=== PATIENT | male | born 1990 | race Caucasian/White ===

== ENCOUNTER 2017-07-21 14:38 | Emergency (ER) | payer OTHER ==
[2017-07-21 14:55] VITALS: BP 111/78; PULSE 85; RESP 18; TEMP 98.5
--- NOTE | 2017-07-21 15:15 | ED ---
General Adult HPI - General Chief complaint: ENT Stated complaint: Sore Throat Time Seen by Provider: 07/21/17 15:03 Source: patient Mode of arrival: ambulatory Limitations: no limitations - History of Present Illness Initial comments: 26-year-old male patient presented to emergency department today for evaluation of sore throat and nasal congestion. Patient states the symptoms started yesterday. Patient states that he does have a cough with greenish sputum production. Reports facial pressure with clear nasal drainage. States that he has felt chilled. He denies any known fever, sweats, shortness of breath, chest pain, dizziness, weakness, ear pain, rash, abdominal pain, nausea, vomiting, or difficulties with urination or bowel movements. Patient admits to smoking cigarettes. - Related Data Previous Rx's Medication Instructions Recorded Ibuprofen [Motrin] 600 mg PO Q6HR PRN #20 tab 07/21/17 Allergies Allergy/AdvReac Type Severity Reaction Status Date / Time No Known Allergies Allergy Verified 07/21/17 14:55 Review of Systems ROS Statement: Those systems with pertinent positive or pertinent negative responses have been documented in the HPI. ROS Other: All systems not noted in ROS Statement are negative. Past Medical History Past Medical History: Asthma Additional Past Medical History / Comment(s): Bronchitis History of Any Multi-Drug Resistant Organisms: None Reported Past Surgical History: No Surgical Hx Reported Additional Past Surgical History / Comment(s): patient states he had unspecified surgery on the back of his head when he was younger, Past Psychological History: No Psychological Hx Reported Smoking Status: Current every day smoker Past Alcohol Use History: Occasional Past Drug Use History: None Reported General Exam Limitations: no limitations General appearance: alert, in no apparent distress Eye exam: Present: normal appearance, PERRL, EOMI. Absent: scleral icterus, conjunctival injection, periorbital swelling ENT exam: Present: normal exam, mucous membranes moist, TM's normal bilaterally. Absent: normal oropharynx (Oropharyngeal erythema) Neck exam: Present: normal inspection. Absent: tenderness, meningismus, lymphadenopathy Respiratory exam: Present: normal lung sounds bilaterally. Absent: respiratory distress, wheezes, rales, rhonchi, stridor Cardiovascular Exam: Present: regular rate, normal rhythm, normal heart sounds. Absent: systolic murmur, diastolic murmur, rubs, gallop, clicks GI/Abdominal exam: Present: soft, normal bowel sounds. Absent: distended, tenderness, guarding, rebound, rigid Extremities exam: Present: normal inspection, full ROM, normal capillary refill. Absent: tenderness, pedal edema, joint swelling, calf tenderness Back exam: Present: normal inspection Neurological exam: Present: alert, oriented X3, CN II-XII intact Psychiatric exam: Present: normal affect, normal mood Skin exam: Present: warm, dry, intact, normal color. Absent: rash Course Vital Signs 07/21/17 14:53 Temperature 98.5 F Pulse Rate 85 Respiratory 18 Rate Blood Pressure 111/78 O2 Sat by Pulse 98 Oximetry Medical Decision Making - Medical Decision Making 26-year-old male patient presented to emergency department today for evaluation of sore throat, nasal congestion, and cough. Symptoms started yesterday. Physical exam did reveal some oropharyngeal erythema however with symptoms of nasal congestion, cough also not having a fever strep throat is unlikely. Patient be discharged home with viral upper respiratory infection. Patient instructed to increase fluids, use Tylenol Motrin for pain control, and to use qzsw-[id number] nasal decongestants for symptom relief. Patient instructed to follow up with his primary care physician for recheck in 1-2 days. Instructed to return here immediately for any new, worsening, or concerning symptoms. Patient verbalizes understanding and agrees this plan. Disposition Clinical Impression: Upper respiratory infection Disposition: HOME SELF-CARE Instructions: Upper Respiratory Infection (ED), Cold Symptoms (ED) Additional Instructions: Increase fluids. Alternate Tylenol Motrin for pain and fever control. Take [id number]-[id number] nasal decongestants or cold medicine. Follow-up with primary care physician for recheck in 1-2 days. Return immediately for any new, worsening, or concerning symptoms. Prescriptions: Ibuprofen [Motrin] 600 mg PO Q6HR PRN #20 tab PRN Reason: Pain Referrals: None,Stated [Primary Care Provider] - 1-2 days Time of Disposition: 15:15
== END 2017-07-21 15:21 | disposition home or self-care (01) ==
LOC: EC 14:38
DX: J06.9 Acute upper respiratory infection, unspecified (principal); F17.210 Nicotine dependence, cigarettes, uncomplicated
CPT/HCPCS: 99282

== ENCOUNTER 2017-07-30 13:40 | Emergency (ER) | payer OTHER ==
[2017-07-30 13:44] VITALS: BP 124/79; RESP 18; TEMP 97.1
[2017-07-30] MEDS ORDERED: IPRATROPIUM-ALBUTEROL 3 ML NEB INHALATION STA (13:53)
--- NOTE | 2017-07-30 14:10 | ED ---
URI HPI - General Chief Complaint: Upper Respiratory Infection Stated Complaint: cough/rash Time Seen by Provider: 07/30/17 13:48 Source: patient, RN notes reviewed Mode of arrival: ambulatory Limitations: no limitations - History of Present Illness Initial Comments: 26-year-old male present emergency department for cough and congestion for last few days. Patient states his rash was chest. His cough gets worse with gross work because he works for [employer]. Patient is a daily smoker and has a history of asthma. Patient has effusion or chills. Patient states rash is itchy and is most likely from the fiberglass. He denies any new soaps or lotions or detergents. Patient states does get better after he washes all. Patient denies any djyj-emm-[id number] medication use. Denies any ear pain, sore throat, headache or dizziness. - Related Data Previous Rx's Medication Instructions Recorded Ibuprofen [Motrin] 600 mg PO Q6HR PRN #20 tab 07/21/17 Albuterol Sulfate [Proair Hfa] 1 - 2 puff INHALATION Q4HR PRN #1 07/30/17 inhaler methylPREDNISolone [Medrol Dose 4 mg PO DIRECTED #1 pack 07/30/17 Pack] Allergies Allergy/AdvReac Type Severity Reaction Status Date / Time No Known Allergies Allergy Verified 07/30/17 13:44 Review of Systems ROS Statement: Those systems with pertinent positive or pertinent negative responses have been documented in the HPI. ROS Other: All systems not noted in ROS Statement are negative. Past Medical History Past Medical History: Asthma Additional Past Medical History / Comment(s): Bronchitis History of Any Multi-Drug Resistant Organisms: None Reported, MRSA Date of last positivie culture/infection: 2011 Past Surgical History: No Surgical Hx Reported Additional Past Surgical History / Comment(s): , Past Psychological History: No Psychological Hx Reported Smoking Status: Current every day smoker Past Alcohol Use History: Occasional Past Drug Use History: None Reported General Exam Limitations: no limitations General appearance: alert, in no apparent distress Head exam: Present: atraumatic, normocephalic, normal inspection Eye exam: Present: normal appearance, PERRL, EOMI. Absent: scleral icterus, conjunctival injection, periorbital swelling ENT exam: Present: normal exam, normal oropharynx, mucous membranes moist, TM's normal bilaterally, normal external ear exam Neck exam: Present: normal inspection, full ROM. Absent: tenderness, meningismus, lymphadenopathy Respiratory exam: Present: wheezes. Absent: normal lung sounds bilaterally, respiratory distress, rales, rhonchi, stridor Cardiovascular Exam: Present: regular rate, normal rhythm, normal heart sounds. Absent: systolic murmur, diastolic murmur, rubs, gallop, clicks Skin exam: Present: warm, dry, intact, normal color. Absent: rash Course Vital Signs 07/30/17 07/30/17 13:41 14:10 Temperature 97.1 F L Pulse Rate 87 88 Respiratory 18 Rate Blood Pressure 124/79 O2 Sat by Pulse 100 Oximetry Medical Decision Making - Medical Decision Making 26-year-old male present emergency department for cough congestion and rash. Patient has acute asthmatic bronchitis. Patient also has smoking dependency which is counseled in detail greater than 3 minutes regarding smoking cessation. Patient x-ray is consistent with bronchitis or reactive airway disease. Patient was started on a Dosepak, pro-air inhaler. He is advised to stop smoking. Patient has contact dermatitis secondary to fiberglass contact and which is advised to rinse thoroughly and take Benadryl if needed. Disposition Clinical Impression: Asthmatic bronchitis, Contact dermatitis Disposition: HOME SELF-CARE Condition: Stable Instructions: Upper Respiratory Infection (ED) Additional Instructions: Please return to the Emergency Department if symptoms worsen or any other concerns. Prescriptions: Albuterol Sulfate [Proair Hfa] 1 - 2 puff INHALATION Q4HR PRN #1 inhaler PRN Reason: difficulty in breathing methylPREDNISolone [Medrol Dose Pack] 4 mg PO DIRECTED #1 pack Referrals: None,Stated [Primary Care Provider] - 1-2 days Time of Disposition: 14:22
--- NOTE | 2017-07-30 14:17 | XR ---
EXAMINATION TYPE: XR chest 2V DATE OF EXAM: 07/30/2017 COMPARISON: NONE HISTORY: Chest pain with coughing for 2 days. TECHNIQUE: Frontal and lateral views of the chest are obtained. FINDINGS: Perihilar peribronchial cuffing is felt present bilaterally. There is no focal air space op acity, pleural effusion, or pneumothorax seen. The cardiac silhouette size is within normal limits. The osseous structures are intact. IMPRESSION: No suspicious peripheral focal infiltrate. Central parahilar peribronchial cuffing raise s concern for reactive airway disease possibly from a viral bronchiolitis.
[2017-07-30 14:21] VITALS: PULSE 92
== END 2017-07-30 14:32 | disposition home or self-care (01) ==
LOC: EC 13:40
DX: J45.909 Unspecified asthma, uncomplicated (principal); L25.8 Unspecified contact dermatitis due to other agents; F17.200 Nicotine dependence, unspecified, uncomplicated; Z86.14 Personal history of Methicillin resistant Staphylococcus aureus infection; Z71.6 Tobacco abuse counseling
CPT/HCPCS: 71020; 94640; 99283

== ENCOUNTER 2017-08-23 22:46 | Emergency (ER) | payer OTHER ==
--- NOTE | 2017-08-24 00:02 | ED ---
Skin/Abscess/FB HPI - General Chief complaint: Skin/Abscess/Foreign Body Stated complaint: Rectal Pain Time Seen by Provider: 08/23/17 23:28 Source: patient, family Mode of arrival: ambulatory Limitations: no limitations - History of Present Illness Initial comments: This patient is 26-year-old man who presents to be evaluated for swelling and pain adjacent to his anus. Patient states that this developed this morning. It may have been after bowel movement. The patient has not had similar previously read he did not notice any bleeding. Patient does not have any abdominal pain. Onset/Timin -: days(s) Tetanus Up to Date: yes Consistency: constant Improves with: none Worsens with: palpation Context: none Associated symptoms: denies other symptoms - Related Data Previous Rx's Medication Instructions Recorded Hydrocortisone/Pramoxine 0 applic RECTAL BID #1 bottle 08/24/17 [Proctofoam-Hc 1%-1% Foam] Allergies Allergy/AdvReac Type Severity Reaction Status Date / Time No Known Allergies Allergy Verified 08/23/17 22:58 Review of Systems ROS Statement: Those systems with pertinent positive or pertinent negative responses have been documented in the HPI. ROS Other: All systems not noted in ROS Statement are negative. Constitutional: Denies: fever, chills Gastrointestinal: Reports: constipation. Denies: abdominal pain, vomiting, diarrhea, melena, hematochezia Genitourinary: Denies: dysuria, hematuria, testicular pain Musculoskeletal: Denies: back pain Skin: Reports: as per HPI Past Medical History Past Medical History: Asthma Additional Past Medical History / Comment(s): Bronchitis History of Any Multi-Drug Resistant Organisms: None Reported, MRSA Date of last positivie culture/infection: 2011 Past Surgical History: No Surgical Hx Reported Additional Past Surgical History / Comment(s): , Past Psychological History: No Psychological Hx Reported Smoking Status: Current every day smoker Past Alcohol Use History: Occasional Past Drug Use History: None Reported General Exam Limitations: no limitations General appearance: alert, in no apparent distress Respiratory exam: Present: normal lung sounds bilaterally. Absent: respiratory distress, wheezes, rales, rhonchi, stridor Cardiovascular Exam: Present: regular rate, normal rhythm, normal heart sounds. Absent: systolic murmur, diastolic murmur, rubs, gallop GI/Abdominal exam: Present: soft. Absent: distended, tenderness, guarding, rebound, mass Rectal exam: Present: hemorrhoids (Patient has an approximately 2 cm external hemorrhoid to the right of the anus. There does not appear to be any definite area of thrombosis. There is no active bleeding.) Extremities exam: Present: normal inspection, normal capillary refill. Absent: pedal edema, calf tenderness Back exam: Present: normal inspection. Absent: CVA tenderness (R), CVA tenderness (L) Skin exam: Present: warm, dry, intact, normal color. Absent: rash Course Vital Signs 08/23/17 22:55 Temperature 97 F L Pulse Rate 68 Respiratory 18 Rate Blood Pressure 118/67 O2 Sat by Pulse 100 Oximetry Disposition Clinical Impression: Hemorrhoid Disposition: HOME SELF-CARE Condition: Fair Instructions: Hemorrhoids (ED) Prescriptions: Hydrocortisone/Pramoxine [Proctofoam-Hc 1%-1% Foam] 0 applic RECTAL BID #1 bottle Referrals: None,Stated [Primary Care Provider] - 1-2 days
[2017-08-24 00:36] VITALS: BP 122/64; PULSE 78; RESP 16; TEMP 98
== END 2017-08-24 00:36 | disposition home or self-care (01) ==
LOC: EC 22:46
DX: K64.4 Residual hemorrhoidal skin tags (principal); F17.200 Nicotine dependence, unspecified, uncomplicated; Z86.14 Personal history of Methicillin resistant Staphylococcus aureus infection
CPT/HCPCS: 99283

== ENCOUNTER 2017-08-25 00:50 | Emergency (ER) | payer OTHER ==
[2017-08-25 00:59] VITALS: BP 119/72; PULSE 71; RESP 20; TEMP 97.9
[2017-08-25] MEDS ORDERED: HYDROCORTISONE 2.5% RECTAL CREAM 30 GM TUBE RECTAL STA (01:30)
--- NOTE | 2017-08-25 01:34 | ED ---
General Adult HPI - General Chief complaint: Recheck/Abnormal Lab/Rx Stated complaint: revisit Time Seen by Provider: 08/25/17 01:16 Source: patient, family Mode of arrival: ambulatory Limitations: no limitations - History of Present Illness Initial comments: 26-year-old male patient presents for evaluation of hemorrhoids. Patient was seen and evaluated here yesterday and given a prescription. Patient states that he feels that the area has gotten bigger since yesterday. He states that he was unable to get the prescription filled because his insurance wouldn't cover it. He states he did obtained Preparation H [id number] and has been using it without relief of symptoms. He states that he has a lot of pain and is unable to work with the symptoms. He is requesting a work note. Patient states last bowel movement was yesterday and it was normal. He denies any passage of blood. He denies any abdominal pain with this. Patient denies any recent rash, fever, chills, shortness breath, chest pain, nausea, vomiting, diarrhea, constipation, back pain, numbness, tingling, dizziness, weakness, hematuria, dysuria, urinary urgency, urinary frequency, headache, visual changes , or any other complaints. - Related Data Previous Rx's Medication Instructions Recorded Hydrocortisone/Pramoxine 0 applic RECTAL BID #1 bottle 08/24/17 [Proctofoam-Hc 1%-1% Foam] Allergies Allergy/AdvReac Type Severity Reaction Status Date / Time No Known Allergies Allergy Verified 08/25/17 00:59 Review of Systems ROS Statement: Those systems with pertinent positive or pertinent negative responses have been documented in the HPI. ROS Other: All systems not noted in ROS Statement are negative. Past Medical History Past Medical History: Asthma Additional Past Medical History / Comment(s): Bronchitis History of Any Multi-Drug Resistant Organisms: None Reported, MRSA Date of last positivie culture/infection: 2011 Past Surgical History: No Surgical Hx Reported Additional Past Surgical History / Comment(s): , Past Psychological History: No Psychological Hx Reported Smoking Status: Current every day smoker Past Alcohol Use History: Occasional Past Drug Use History: None Reported General Exam Limitations: no limitations General appearance: alert, in no apparent distress, other (This is a well- developed, well-nourished adult male patient in no acute distress. Temperature 97.9F, pulse 71, respirations 20, blood pressure 119/72, pulse ox 99% on room air.) Eye exam: Present: normal appearance, PERRL, EOMI. Absent: scleral icterus, conjunctival injection, periorbital swelling ENT exam: Present: normal exam, normal oropharynx, mucous membranes moist Respiratory exam: Present: normal lung sounds bilaterally. Absent: respiratory distress, wheezes, rales, rhonchi, stridor Cardiovascular Exam: Present: regular rate, normal rhythm, normal heart sounds. Absent: systolic murmur, diastolic murmur, rubs, gallop, clicks GI/Abdominal exam: Present: soft, normal bowel sounds. Absent: distended, tenderness, guarding, rebound, rigid Rectal exam: Present: hemorrhoids (Large hemorrhoid to the left side of the anus. Hemorrhage is pink in color with no evidence of thrombosis. No evidence of bleeding.). Absent: normal inspection Neurological exam: Present: alert, oriented X3, CN II-XII intact Psychiatric exam: Present: normal affect, normal mood Skin exam: Present: warm, dry, intact, normal color. Absent: rash Course Vital Signs 08/25/17 00:56 Temperature 97.9 F Pulse Rate 71 Respiratory 20 Rate Blood Pressure 119/72 O2 Sat by Pulse 99 Oximetry Medical Decision Making - Medical Decision Making 26-year-old male patient presented for evaluation of hemorrhoids are increasing in size. Physical examination did reveal a large external hemorrhoid to the left of the anus. Patient is denying any abdominal pain or passage of blood. He was unable to hop picker his prescription because his insurance wouldn't cover it. He states he was using Preparation H. I did encourage him to call the general surgeon in the morning for further evaluation. I did educate him regarding use of sitz baths and other [id number] products for relief of symptoms. I instructed him to take ibuprofen. I instructed him to get an over- the-counter stool softener to make it easier for him to have bowel movements. Patient again did request a work note states he is unable to work with the hemorrhoids. I did give him a work note for a few days off. I encouraged him to return here immediately for any new, worsening, or concerning symptoms. He verbalized understanding and agreed with this plan. Disposition Clinical Impression: Hemorrhoid Disposition: HOME SELF-CARE Condition: Good Instructions: Hemorrhoids (ED) Additional Instructions: Do sits baths a few times per day. Fill the tub up with 3-4 inches of water, sitting there for 20 minutes at a time. Use cream twice daily. Take over-the- counter stool softeners. Follow up with her primary care physician for recheck. Follow-up with a general surgeon as she your instructed to yesterday. Return here immediately for any new, worsening, or concerning symptoms. Referrals: None,Stated [Primary Care Provider] - 1-2 days Hans Abraham MD [STAFF PHYSICIAN] - 1-2 days Time of Disposition: 01:34
== END 2017-08-25 01:53 | disposition home or self-care (01) ==
LOC: EC 00:50
DX: K64.4 Residual hemorrhoidal skin tags (principal); F17.200 Nicotine dependence, unspecified, uncomplicated
CPT/HCPCS: 99282

== ENCOUNTER 2018-01-23 16:00 | Emergency (ER) | payer OTHER ==
[2018-01-23 16:07] VITALS: BP 118/71; PULSE 66; RESP 16; TEMP 97.7
--- NOTE | 2018-01-23 16:11 | ED ---
ENT HPI - General Chief complaint: ENT Stated complaint: Ear pain Time Seen by Provider: 01/23/18 16:03 Source: patient, RN notes reviewed Mode of arrival: ambulatory Limitations: no limitations - History of Present Illness Initial comments: 27-year-old male presents emergency Department with chief complaint of right ear plugged. Patient states started last night. Patient states that this problem in the past in which she had a buildup of wax. Patient denies fever, chills, headache, dizziness. Denies any drainage. Patient states that it feels exactly same as it did in the past. - Related Data Previous Rx's Medication Instructions Recorded Hydrocortisone/Pramoxine 0 applic RECTAL BID #1 bottle 08/24/17 [Proctofoam-Hc 1%-1% Foam] Allergies Allergy/AdvReac Type Severity Reaction Status Date / Time No Known Allergies Allergy Verified 08/25/17 00:59 Review of Systems ROS Statement: Those systems with pertinent positive or pertinent negative responses have been documented in the HPI. ROS Other: All systems not noted in ROS Statement are negative. Past Medical History Past Medical History: Asthma Additional Past Medical History / Comment(s): Bronchitis History of Any Multi-Drug Resistant Organisms: MRSA Date of last positivie culture/infection: 2011 Past Surgical History: No Surgical Hx Reported Additional Past Surgical History / Comment(s): , Past Psychological History: No Psychological Hx Reported Smoking Status: Current every day smoker Past Alcohol Use History: Rare Past Drug Use History: None Reported General Exam Limitations: no limitations General appearance: alert, in no apparent distress Head exam: Present: atraumatic, normocephalic, normal inspection Eye exam: Present: normal appearance, PERRL, EOMI. Absent: scleral icterus, conjunctival injection, periorbital swelling ENT exam: Present: normal oropharynx, mucous membranes moist, TM's normal bilaterally. Absent: normal external ear exam (Cerumen impaction on the right) Neck exam: Present: normal inspection, full ROM. Absent: tenderness, meningismus, lymphadenopathy Respiratory exam: Present: normal lung sounds bilaterally. Absent: respiratory distress, wheezes, rales, rhonchi, stridor Cardiovascular Exam: Present: regular rate, normal rhythm, normal heart sounds. Absent: systolic murmur, diastolic murmur, rubs, gallop, clicks Course Vital Signs 01/23/18 16:04 Temperature 97.7 F Pulse Rate 66 Respiratory 16 Rate Blood Pressure 118/71 O2 Sat by Pulse 99 Oximetry Procedures - Ear Wax Removal Right Ear Ear Canal Irrigated by: RN Ear Canal Irrigated With: warm saline with H2O2 using syringe/angiocath Results: Re-examined: cerumen removed completely TM Visible: TM(s) intact, normal appearance Ear Canal: atraumatic Patient Tolerated Procedure: well, no complications Complications: no problems Medical Decision Making - Medical Decision Making 27-year-old male presented to emergency department for cerumen impaction. Patient did have his ear canal irrigated patient tolerated well there were no complications. Patient was discharged. There is no signs of infection. Disposition Clinical Impression: Cerumen impaction Disposition: HOME SELF-CARE Condition: Stable Instructions: Cerumen Impaction (ED) Additional Instructions: Please return to the Emergency Department if symptoms worsen or any other concerns. Referrals: None,Stated [Primary Care Provider] - 1-2 days Time of Disposition: 16:11
== END 2018-01-23 16:58 | disposition home or self-care (01) ==
LOC: EC 16:00
DX: H61.21 Impacted cerumen, right ear (principal); F17.200 Nicotine dependence, unspecified, uncomplicated; Z86.14 Personal history of Methicillin resistant Staphylococcus aureus infection
CPT/HCPCS: 69209; 99282

== ENCOUNTER 2018-05-31 03:53 | Emergency (ER) | payer OTHER ==
[2018-05-31] MEDS ORDERED: HYDROcodone/APAP 5-325MG 1 EACH TAB PO STA (05:19)
[2018-05-31] MEDS ORDERED: CEPHALEXIN 500 MG CAP PO STA (05:19)
[2018-05-31] MEDS ORDERED: SULFAMETHOX-TMP 800-160MG 1 EACH TAB PO STA (05:19)
--- NOTE | 2018-05-31 05:50 | ED ---
General Adult HPI - General Chief complaint: Skin/Abscess/Foreign Body Stated complaint: Boil on tailbone Time Seen by Provider: 05/31/18 05:05 Source: patient, RN notes reviewed, old records reviewed Mode of arrival: ambulatory Limitations: no limitations - History of Present Illness Initial comments: This is a 27-year-old male the ER for evaluation of buttocks pain. Patient states he has significant boil or a bump to top of buttocks, he has some purulent drainage yesterday, frontal patient comes ER today for evaluation regarding increased pain and drainage. Patient is having severe pain to his buttocks, no fever. Denies any other complaints - Related Data Previous Rx's Medication Instructions Recorded Hydrocortisone/Pramoxine 0 applic RECTAL BID #1 bottle 08/24/17 [Proctofoam-Hc 1%-1% Foam] Cephalexin [Keflex] 500 mg PO Q6HR #40 cap 05/31/18 Sulfamethox-Tmp 800-160Mg [Bactrim 2 tab PO BID #40 tab 05/31/18 DS 800-160 mg] Allergies Allergy/AdvReac Type Severity Reaction Status Date / Time No Known Allergies Allergy Verified 05/31/18 04:07 Review of Systems ROS Statement: Those systems with pertinent positive or pertinent negative responses have been documented in the HPI. ROS Other: All systems not noted in ROS Statement are negative. Past Medical History Past Medical History: Asthma Additional Past Medical History / Comment(s): Bronchitis History of Any Multi-Drug Resistant Organisms: MRSA Date of last positivie culture/infection: 2011 MDRO Source:: right thigh Past Surgical History: No Surgical Hx Reported Additional Past Surgical History / Comment(s): , Past Psychological History: No Psychological Hx Reported Smoking Status: Current every day smoker Past Alcohol Use History: Rare Past Drug Use History: None Reported General Exam Limitations: no limitations General appearance: alert, in no apparent distress Head exam: Present: atraumatic, normocephalic, normal inspection Eye exam: Present: normal appearance, PERRL, EOMI. Absent: scleral icterus, conjunctival injection, periorbital swelling ENT exam: Present: normal exam, mucous membranes moist Neck exam: Present: normal inspection. Absent: tenderness, meningismus, lymphadenopathy Respiratory exam: Present: normal lung sounds bilaterally. Absent: respiratory distress, wheezes, rales, rhonchi, stridor Cardiovascular Exam: Present: regular rate, normal rhythm, normal heart sounds. Absent: systolic murmur, diastolic murmur, rubs, gallop, clicks GI/Abdominal exam: Present: soft, normal bowel sounds. Absent: distended, tenderness, guarding, rebound, rigid Rectal exam: Present: other (Patient does have erythematous rash and abscess with purulent drainage) Extremities exam: Present: normal inspection, full ROM, normal capillary refill. Absent: tenderness, pedal edema, joint swelling, calf tenderness Back exam: Present: normal inspection Neurological exam: Present: alert, oriented X3, CN II-XII intact Psychiatric exam: Present: normal affect, normal mood Skin exam: Present: warm, dry, intact, normal color. Absent: rash Course Vital Signs 05/31/18 04:04 Temperature 99.1 F Pulse Rate 87 Respiratory 17 Rate Blood Pressure 115/76 O2 Sat by Pulse 100 Oximetry - Reevaluation(s) Reevaluation #1: 05/31/18 05:49 Patient's pain is controlled Procedures - Incision & Drainage Consent Obtained: verbal consent Time Out Performed?: Yes Site: buttock Anesthetic Used: lidocaine 1%, with epi I&D Cleaning Method: Chloroprep Sterile Field Used?: Yes Scalpel Used: #11 Needle Aspiration Performed?: No Irrigation Performed?: No I&D Drainage Obtained: Pus Culture Obtained?: No Medical Decision Making - Medical Decision Making 27 male the ER for evaluation of abscess. Patient positive abscess buttocks, abscess is incised and drained, patient was placed on antibiotics encouraged strongly hygiene and patient can be discharged home Disposition Clinical Impression: Abscess of buttock Disposition: HOME SELF-CARE Condition: Good Instructions: Abscess (ED) Prescriptions: Cephalexin [Keflex] 500 mg PO Q6HR #40 cap Sulfamethox-Tmp 800-160Mg [Bactrim DS 800-160 mg] 2 tab PO BID #40 tab Is patient prescribed a controlled substance at d/c from ED?: No Referrals: None,Stated [Primary Care Provider] - 1-2 days
[2018-05-31 06:37] VITALS: BP 136/67; PULSE 79; RESP 16; TEMP 97.9
== END 2018-05-31 06:35 | disposition home or self-care (01) ==
LOC: EC 03:53
DX: L02.31 Cutaneous abscess of buttock (principal); F17.200 Nicotine dependence, unspecified, uncomplicated; Z86.14 Personal history of Methicillin resistant Staphylococcus aureus infection
CPT/HCPCS: 10060; 99283

== ENCOUNTER 2018-07-06 17:43 | Emergency (ER) | payer OTHER ==
[2018-07-06 18:15] VITALS: BP 124/73; PULSE 64; RESP 18; TEMP 97.8
--- NOTE | 2018-07-06 19:13 | ED ---
ENT HPI - General Chief complaint: ENT Stated complaint: Eye swollen Time Seen by Provider: 07/06/18 18:29 Source: patient Mode of arrival: ambulatory Limitations: no limitations - History of Present Illness Initial comments: 27-year-old male with no past medical history presents today for chief complaint of right upper eyelid swelling and erythema. Patient states that 2 days ago he noticed a bump on his upper eyelid, for the past 2 days has been slowly increasing in size. It is tender to touch. He denies any conjunctival injection, drainage of the eye, visual changes, double vision, pain with extraocular eye movements, headache, nausea, vomiting or any other symptoms. 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 Patient denies any recent fever, chills, shortness of breath, chest pain, back pain, abdominal pain, nausea or vomiting, numbness or tingling, dysuria or hematuria, constipation or diarrhea, headaches or visual changes, or any other complaints. Upon arrival vital signs stable, afebrile. - Related Data Previous Rx's Medication Instructions Recorded Hydrocortisone/Pramoxine 0 applic RECTAL BID #1 bottle 08/24/17 [Proctofoam-Hc 1%-1% Foam] Cephalexin [Keflex] 500 mg PO Q6HR #40 cap 05/31/18 Sulfamethox-Tmp 800-160Mg [Bactrim 2 tab PO BID #40 tab 05/31/18 DS 800-160 mg] Allergies Allergy/AdvReac Type Severity Reaction Status Date / Time No Known Allergies Allergy Verified 05/31/18 04:07 Review of Systems ROS Statement: Those systems with pertinent positive or pertinent negative responses have been documented in the HPI. ROS Other: All systems not noted in ROS Statement are negative. Constitutional: Denies: fever, chills, night sweats Eyes: Reports: as per HPI (eye lid swelling, erythema and tenderness to palpation). Denies: eye pain, eye discharge, vision change ENT: Denies: ear pain, throat pain Respiratory: Denies: cough, dyspnea, wheezes, hemoptysis Cardiovascular: Denies: chest pain, palpitations Endocrine: Denies: fatigue Gastrointestinal: Denies: abdominal pain, nausea, vomiting Genitourinary: Denies: urgency, dysuria, frequency Musculoskeletal: Denies: back pain Skin: Denies: rash, lesions Neurological: Denies: headache, weakness Past Medical History Past Medical History: Asthma Additional Past Medical History / Comment(s): Bronchitis History of Any Multi-Drug Resistant Organisms: MRSA Date of last positivie culture/infection: 2011 MDRO Source:: right thigh Past Surgical History: No Surgical Hx Reported Additional Past Surgical History / Comment(s): , Past Psychological History: No Psychological Hx Reported Smoking Status: Current every day smoker Past Alcohol Use History: Occasional Past Drug Use History: None Reported General Exam - General Exam Comments Initial Comments: General: The patient is awake and alert, in no distress, and does not appear acutely ill. Eye: Small raised erythematous of the upper inner eyelid. No active drainage. No surrounding soft tissue erythema of the right eye. Mild left upper eyelid swelling that is tender to palpation. +3 mm pupils are equal, round and reactive to light, extra-ocular movements are intact, no pain with extraocular eye movement. No nystagmus. There is normal conjunctiva bilaterally. No signs of icterus. VA 20/30 OD, OS, OU. Ears, nose, mouth and throat: There are moist mucous membranes and no oral lesions. Neck: The neck is supple, there is no tenderness or JVD. Cardiovascular: There is a regular rate and rhythm. No murmur, rub or gallop is appreciated. Respiratory: Lungs are clear to auscultation, respirations are non-labored, breath sounds are equal. No wheezes, stridor, rales, or rhonchi. Musculoskeletal: Normal ROM. Sensation intact. Pulses equal bilaterally 2+. Neurological: A&O x 3. CN II-XII intact, There are no obvious motor or sensory deficits. Coordination appears grossly intact. Speech is normal. Skin: Skin is warm and dry and no rashes or lesions are noted. Psychiatric: Cooperative, appropriate mood & affect, normal judgment. Limitations: no limitations Course Vital Signs 07/06/18 18:12 Temperature 97.8 F Pulse Rate 64 Respiratory 18 Rate Blood Pressure 124/73 O2 Sat by Pulse 100 Oximetry Medical Decision Making - Medical Decision Making Physical examination reveals hordeolum of the upper and her left eyelid. No evidence of surrounding cellulitis. Patient will be started on topical antibiotic, and was instructed to use warm compresses to the left upper lid. Pt was instructed to return to the ER if symptoms worsen or change. pt agreed with plan d/c in stable condition. Case discussed with Dr. Keyes prior to d/c. Disposition Clinical Impression: Hordeolum internum of right upper eyelid Narrative: Upper eyelid internal hordeolum. Pt was instructed to use warm compresses and to return if symptoms change or worsen. Pt instructed to f/u with opthamology in 1-2 days. Pt agreed with plan d/c in stable condition. Disposition: HOME SELF-CARE Instructions: Russell (ED) Additional Instructions: Please use warm lid compresses as discussed. Please follow-up with ophthalmology in 1-2 days. Please return to emergency room if the symptoms increase or worsen or for any other concerns. Is patient prescribed a controlled substance at d/c from ED?: No Referrals: None,Stated [Primary Care Provider] - 1-2 days Óscar Simental MD [STAFF PHYSICIAN] - 1-2 days Time of Disposition: 19:13
== END 2018-07-06 19:22 | disposition home or self-care (01) ==
LOC: EC 17:43
DX: H00.021 Hordeolum internum right upper eyelid (principal); F17.200 Nicotine dependence, unspecified, uncomplicated; Z86.14 Personal history of Methicillin resistant Staphylococcus aureus infection
CPT/HCPCS: 99283

== ENCOUNTER 2020-04-22 09:18 | Emergency (ER) | payer OTHER ==
[2020-04-22 09:22] VITALS: BP 143/82; PULSE 72; RESP 18; TEMP 98
[2020-04-22] MEDS ORDERED: HYDROcodone/APAP 5-325MG 1 EACH TAB PO STA (09:41)
[2020-04-22] MEDS ORDERED: CLINDAMYCIN 150 MG CAP PO STA (09:41)
--- NOTE | 2020-04-22 09:52 | ED ---
ENT HPI - General Chief complaint: Dental/Oral Stated complaint: Toothache Time Seen by Provider: 04/22/20 09:25 Source: patient, RN notes reviewed Mode of arrival: ambulatory Limitations: no limitations - History of Present Illness Initial comments: This is a 29-year-old male past medical history states she's had a toothache for approximately 1 week. He's tried topical medication such as Orajel [id number] Aleve he was getting some relief and now is getting worse and refractory to this method of pain control. He denies any fevers chills or s weats he does state he has a broken tooth in the back left upper molars. He does admit he does need to see a dentist. They have been closed due to the current pandemic. He has no other complaints this time no other modifying factors MD complaint: tooth pain - Related Data Previous Rx's Medication Instructions Recorded Hydrocortisone/Pramoxine 0 applic RECTAL BID #1 bottle 08/24/17 [Proctofoam-Hc 1%-1% Foam] Cephalexin [Keflex] 500 mg PO Q6HR #40 cap 05/31/18 Sulfamethox-Tmp 800-160Mg [Bactrim 2 tab PO BID #40 tab 05/31/18 DS 800-160 mg] Clindamycin [Cleocin] 150 mg PO Q6H #40 cap 04/22/20 Hydrocodone/Acetaminophen [[place] 1 each PO Q6HR PRN #20 tab 04/22/20 5-325] Ibuprofen 800 mg PO Q6HR PRN #20 tablet 04/22/20 Allergies Allergy/AdvReac Type Severity Reaction Status Date / Time No Known Allergies Allergy Verified 04/22/20 09:22 Review of Systems ROS Statement: Those systems with pertinent positive or pertinent negative responses have been documented in the HPI. ROS Other: All systems not noted in ROS Statement are negative. Past Medical History Past Medical History: Asthma Additional Past Medical History / Comment(s): Bronchitis History of Any Multi-Drug Resistant Organisms: MRSA Date of last positivie culture/infection: 2011 MDRO Source:: right thigh Past Surgical History: No Surgical Hx Reported Additional Past Surgical History / Comment(s): , Past Psychological History: No Psychological Hx Reported Smoking Status: Current every day smoker Past Alcohol Use History: Occasional Past Drug Use History: None Reported General Exam - General Exam Comments Initial Comments: Is a well-developed well-nourished awake alert oriented 3 male Limitations: no limitations General appearance: alert, in no apparent distress Eye exam: Present: normal appearance, PERRL, EOMI. Absent: scleral icterus, conjunctival injection, periorbital swelling ENT exam: Present: mucous membranes moist, other (Patient does demonstrate poor dentition with multiple areas of cavity in various teeth. Tooth #15 appears to be the worse with rotation of the gumline localized erythema to the gumline no drainage or discharge no evidence of abscess at this time. Tenderness to palpation.) Neck exam: Present: normal inspection. Absent: tenderness, meningismus, lymphadenopathy Neurological exam: Present: alert, oriented X3, CN II-XII intact Psychiatric exam: Present: normal affect, normal mood Skin exam: Present: warm, dry, intact, normal color. Absent: rash Course Vital Signs 04/22/20 09:21 Temperature 98.0 F Pulse Rate 72 Respiratory 18 Rate Blood Pressure 143/82 O2 Sat by Pulse 98 Oximetry Medical Decision Making - Medical Decision Making No further workup is indicated at this time patient does have severe dental caries he will be placed on antibiotics as well as pain medication is encouraged to try to find a dentist that is open. Otherwise return as needed Disposition Clinical Impression: Pain due to dental caries, Gingivitis Disposition: HOME SELF-CARE Condition: Good Instructions (If sedation given, give patient instructions): Toothache (ED), Gingivitis (ED) Prescriptions: Clindamycin [Cleocin] 150 mg PO Q6H #40 cap Ibuprofen 800 mg PO Q6HR PRN #20 tablet PRN Reason: Pain Hydrocodone/Acetaminophen [[place] 5-325] 1 each PO Q6HR PRN #20 tab PRN Reason: Pain Is patient prescribed a controlled substance at d/c from ED?: No Referrals: None,Stated [Primary Care Provider] - 1-2 days
--- NOTE | 2020-04-22 09:53 | ED ---
Disposition Clinical Impression: Pain due to dental caries, Gingivitis Disposition: HOME SELF-CARE Condition: Good Instructions (If sedation given, give patient instructions): Gingivitis (ED), Toothache (ED) Prescriptions: Clindamycin [Cleocin] 150 mg PO Q6H #40 cap Ibuprofen 800 mg PO Q6HR PRN #20 tablet PRN Reason: Pain Hydrocodone/Acetaminophen [[place] 5-325] 1 each PO Q6HR PRN #20 tab PRN Reason: Pain Is patient prescribed a controlled substance at d/c from ED?: Yes When asked, does pt state using other controlled substances?: No If prescribed controlled substance>3 days was MAPS reviewed?: Prescribed <3 Days If opioid is for acute pain is fill amount 7 days or less?: Yes If Rx opioid, was Start Talking consent form obtained?: Yes Referrals: None,Stated [Primary Care Provider] - 1-2 days
== END 2020-04-22 09:54 | disposition home or self-care (01) ==
LOC: EC 09:18
DX: K05.10 Chronic gingivitis, plaque induced (principal); K02.9 Dental caries, unspecified; F17.200 Nicotine dependence, unspecified, uncomplicated
CPT/HCPCS: 99282

== ENCOUNTER 2021-06-24 11:18 | Emergency (ER) | payer OTHER ==
[2021-06-24 11:38] VITALS: BP 116/72; PULSE 68; RESP 16; TEMP 98
[2021-06-24] MEDS ORDERED: ACET/COD 300 MG/30 MG STARTER PACK 6 TAB BTL PO STA (12:06)
--- NOTE | 2021-06-24 12:09 | ED ---
ENT HPI - General Chief complaint: Dental/Oral Stated complaint: dental pain Time Seen by Provider: 06/24/21 11:39 Source: patient Mode of arrival: ambulatory Limitations: no limitations - History of Present Illness Initial comments: Is a 30-year-old male presenting to emergency Department with complaints of right upper sided dental pain for the past week. He states he knows he has a broken tooth back there but it started flaring up on him last week. Has been trying Tylenol Motrin without improvement in his pain. He denies any fever or chills, no nausea or vomiting, no facial swelling. He has not followed up with his dentist yet. He has no further complaints. - Related Data Previous Rx's Medication Instructions Recorded Hydrocortisone/Pramoxine 0 applic RECTAL BID #1 bottle 08/24/17 [Proctofoam-Hc 1%-1% Foam] Cephalexin [Keflex] 500 mg PO Q6HR #40 cap 05/31/18 Sulfamethox-Tmp 800-160Mg [Bactrim 2 tab PO BID #40 tab 05/31/18 DS 800-160 mg] Clindamycin [Cleocin] 150 mg PO Q6H #40 cap 04/22/20 Hydrocodone/Acetaminophen [[place] 1 each PO Q6HR PRN #20 tab 04/22/20 5-325] Ibuprofen 800 mg PO Q6HR PRN #20 tablet 04/22/20 Penicillin V Potassium [Pen Vee K] 500 mg PO QID 7 Days #28 tablet 06/24/21 Allergies Allergy/AdvReac Type Severity Reaction Status Date / Time No Known Allergies Allergy Verified 06/24/21 11:36 Review of Systems ROS Statement: Those systems with pertinent positive or pertinent negative responses have been documented in the HPI. ROS Other: All systems not noted in ROS Statement are negative. Past Medical History Past Medical History: Asthma Additional Past Medical History / Comment(s): Bronchitis History of Any Multi-Drug Resistant Organisms: MRSA Date of last positivie culture/infection: 2011 MDRO Source:: right thigh Past Surgical History: No Surgical Hx Reported Additional Past Surgical History / Comment(s): , Past Psychological History: No Psychological Hx Reported Smoking Status: Current every day smoker Past Alcohol Use History: Occasional Past Drug Use History: None Reported General Exam - General Exam Comments Initial Comments: GENERAL: Patient is well-developed and well-nourished. Patient is nontoxic and in no acute distress. HEAD: Atraumatic, normocephalic. EYES: Pupils equal round and reactive to light, extraocular movements intact, sclera anicteric, conjunctiva are normal. Eyelids were unremarkable. ENT: TMs normal, nares patent, oropharynx clear without exudates. Moist mucous membranes. Patient has numerous dental caries and fractures of teeth, he has pain of tooth #2, no facial swelling. NECK: Normal range of motion, supple without lymphadenopathy or JVD. LUNGS: Unlabored respirations. Breath sounds clear to auscultation bilaterally and equ al. No wheezes rales or rhonchi. HEART: Regular rate and rhythm without murmurs, rubs or gallops. MUSCULOSKELETAL: Normal extremities with adequate strength and normal range of motion, no pitting or edema. No clubbing or cyanosis. SKIN: Warm, Dry, normal turgor, no rashes or lesions noted. Limitations: no limitations Course Vital Signs 06/24/21 11:36 Temperature 98 F Pulse Rate 68 Respiratory 16 Rate Blood Pressure 116/72 O2 Sat by Pulse 100 Oximetry Medical Decision Making - Medical Decision Making She has a 30-year-old male here for right-sided dental pain times one week. He has no fever, no facial swelling. He has many dental caries and fractured teeth on exam. He has not called his dentist. Patient will be given penicillin for possible dental infection, Tylenol 3 starter pack for pain. I recommended alternating between Tylenol and Motrin for symptom relief. He needs to call his dentist for follow-up. He is stable for discharge. He is agreeable to this plan of care. Disposition Clinical Impression: Dental caries, Fracture of tooth, Toothache Disposition: HOME SELF-CARE Condition: Stable Instructions (If sedation given, give patient instructions): Toothache (ED) Additional Instructions: Please return to the Emergency Department if symptoms worsen or any other concerns. Take antibiotics as prescribed. Alternate between Tylenol and Motrin for pain control, may take Tylenol threes for more severe pain. Follow-up with your dentist. Please follow up with the [facility] dental clinic. [facility] [place] [address]. Phone number for new patients or [phone] for existing patients. Prescriptions: Penicillin V Potassium [Pen Vee K] 500 mg PO QID 7 Days #28 tablet Is patient prescribed a controlled substance at d/c from ED?: No Referrals: None,Stated [Primary Care Provider] - 1-2 days Time of Disposition: 12:09
== END 2021-06-24 12:29 | disposition home or self-care (01) ==
LOC: EC 11:18
DX: S02.5XXA Fracture of tooth (traumatic), initial encounter for closed fracture (principal); K02.9 Dental caries, unspecified; J45.909 Unspecified asthma, uncomplicated; F17.200 Nicotine dependence, unspecified, uncomplicated; X58.XXXA Exposure to other specified factors, initial encounter
CPT/HCPCS: 99282

== ENCOUNTER 2021-07-01 05:35 | Emergency (ER) | payer OTHER ==
[2021-07-01 06:06] VITALS: BP 110/73; PULSE 67; RESP 18; TEMP 97.9
[2021-07-01] MEDS ORDERED: traMADol 50 MG STARTER PACK 3 TAB BTL PO STA (06:34)
[2021-07-01] MEDS ORDERED: KETOROLAC 15 MG/ML 1 ML VIAL IM STA (06:34)
--- NOTE | 2021-07-01 06:39 | ED ---
ENT HPI - General Chief complaint: Dental/Oral Stated complaint: Dental pain/Revisit Time Seen by Provider: 07/01/21 06:17 Source: patient Mode of arrival: ambulatory - History of Present Illness Initial comments: Patient is a 30-year-old male presenting to emergency Department with complaints of continued right-sided dental pain for the past 2-3 weeks. Patient was seen in the ER last week, given a prescription for penicillin and Tylenol threes, he states that the penicillin is making his stomach upset so he stopped taking it. He states the pain medicine is not working. He states he has not had time to go see his dentist yet. He denies any fevers or chills, no nausea or vomiting. He has no further complaints. - Related Data Previous Rx's Medication Instructions Recorded Hydrocortisone/Pramoxine 0 applic RECTAL BID #1 bottle 08/24/17 [Proctofoam-Hc 1%-1% Foam] Cephalexin [Keflex] 500 mg PO Q6HR #40 cap 05/31/18 Sulfamethox-Tmp 800-160Mg [Bactrim 2 tab PO BID #40 tab 05/31/18 DS 800-160 mg] Clindamycin [Cleocin] 150 mg PO Q6H #40 cap 04/22/20 Hydrocodone/Acetaminophen [[place] 1 each PO Q6HR PRN #20 tab 04/22/20 5-325] Ibuprofen 800 mg PO Q6HR PRN #20 tablet 04/22/20 Penicillin V Potassium [Pen Vee K] 500 mg PO QID 7 Days #28 tablet 06/24/21 Allergies Allergy/AdvReac Type Severity Reaction Status Date / Time No Known Allergies Allergy Verified 07/01/21 06:06 Review of Systems ROS Statement: Those systems with pertinent positive or pertinent negative responses have been documented in the HPI. ROS Other: All systems not noted in ROS Statement are negative. Past Medical History Past Medical History: Asthma Additional Past Medical History / Comment(s): Bronchitis History of Any Multi-Drug Resistant Organisms: MRSA Date of last positivie culture/infection: 2011 MDRO Source:: right thigh Past Surgical History: No Surgical Hx Reported Additional Past Surgical History / Comment(s): , Past Psychological History: No Psychological Hx Reported Smoking Status: Current every day smoker Past Alcohol Use History: Occasional Past Drug Use History: None Reported General Exam - General Exam Comments Initial Comments: GENERAL: Patient is well-developed and well-nourished. Patient is nontoxic and in no acute distress. HEAD: Atraumatic, normocephalic. EYES: Pupils equal round and reactive to light, extraocular movements intact, sclera anicteric, conjunctiva are normal. Eyelids were unremarkable. ENT: TMs normal, nares patent, oropharynx clear without exudates. Moist mucous membranes. Patient has many decayed teeth, many dental caries, fractured teeth. He has no visible dental abscess seen, no facial swelling. Pain is along the right upper side, from the front elevator to the back. NECK: Normal range of motion, supple without lymphadenopathy or JVD. LUNGS: Unlabored respirations. Breath sounds clear to auscultation bilaterally and equal. No wheezes rales or rhonchi. HEART: Regular rate and rhythm without murmurs, rubs or gallops. MUSCULOSKELETAL: Normal extremities with adequate strength and normal range of motion, no pitting or edema. No clubbing or cyanosis. NEUROLOGICAL: Patient is alert and oriented x 3. SKIN: Warm, Dry, normal turgor, no rashes or lesions noted. Course Vital Signs 07/01/21 06:03 Temperature 97.9 F Pulse Rate 67 Respiratory 18 Rate Blood Pressure 110/73 O2 Sat by Pulse 97 Oximetry Medical Decision Making - Medical Decision Making Patient is a 30-year-old male here with right-sided dental pain for the past 2 weeks. He was seen here last week, he has a prescription for penicillin and was also given Tylenol threes. He has not been taking ibuprofen with this. He has not followed up with his dentist and states is too busy. Denies any fevers, he has no facial swelling, no visible dental abscess seen today. He was given Toradol for pain and tramadol for home. He can alternate with tylenol. I urged him that he needs to follow up with dentist as is nothing further for us to do here. He is in agreement with this plan of care and is stable for discharge. Disposition Clinical Impression: Toothache, Dental caries, Fracture of tooth Disposition: HOME SELF-CARE Condition: Stable Instructions (If sedation given, give patient instructions): Toothache (ED) Additional Instructions: Please return to the Emergency Department if symptoms worsen or any other concerns. Please continue with prescribed antibiotics. Alternate between Tylenol and Motrin for discomfort. Follow-up with your dentist for further management. Please follow up with the [facility]. [facility] [address]. Phone number for new patients or [phone] for existing patients. Is patient prescribed a controlled substance at d/c from ED?: No Referrals: None,Stated [Primary Care Provider] - 1-2 days Time of Disposition: 06:39
== END 2021-07-01 06:57 | disposition home or self-care (01) ==
LOC: EC 05:35
DX: S02.5XXA Fracture of tooth (traumatic), initial encounter for closed fracture (principal); K02.9 Dental caries, unspecified; J45.909 Unspecified asthma, uncomplicated; F17.200 Nicotine dependence, unspecified, uncomplicated; X58.XXXA Exposure to other specified factors, initial encounter
CPT/HCPCS: 99282; 96372; J1885

== ENCOUNTER 2022-06-22 08:09 | Emergency (ER) | payer OTHER ==
[2022-06-22 08:13] VITALS: BP 137/83; PULSE 65; RESP 18; TEMP 97.6
[2022-06-22] MEDS ORDERED: AMOXIC-POT CLAV 875-125MG 1 EACH TAB PO STA (08:18)
[2022-06-22] MEDS ORDERED: IBUPROFEN 600 MG TAB PO STA (08:18)
--- NOTE | 2022-06-22 08:24 | ED ---
General Adult HPI - General Chief complaint: Dental/Oral Stated complaint: Dental Pain Time Seen by Provider: 06/22/22 08:11 Source: patient, RN notes reviewed, old records reviewed Mode of arrival: ambulatory Limitations: no limitations - History of Present Illness Initial comments: 31-year-old male with poor dentition present increased pain in the left lower molars. Patient has not had fever. No difficulty swallowing or difficulty breathing. He is scheduled to see his dentist but there is significant weight.. He has been taking Tylenol and Motrin with only minimal relief. - Related Data Previous Rx's Medication Instructions Recorded Hydrocortisone/Pramoxine 0 applic RECTAL BID #1 bottle 08/24/17 [Proctofoam-Hc 1%-1% Foam] Cephalexin [Keflex] 500 mg PO Q6HR #40 cap 05/31/18 Sulfamethox-Tmp 800-160Mg [Bactrim 2 tab PO BID #40 tab 05/31/18 DS 800-160 mg] Clindamycin [Cleocin] 150 mg PO Q6H #40 cap 04/22/20 Hydrocodone/Acetaminophen [[place] 1 each PO Q6HR PRN #20 tab 04/22/20 5-325] Ibuprofen 800 mg PO Q6HR PRN #20 tablet 04/22/20 Penicillin V Potassium [Pen Vee K] 500 mg PO QID 7 Days #28 tablet 06/24/21 Amoxic-Pot Clav 875-125Mg 1 tab PO Q12HR 14 Days #28 tab 06/22/22 [Augmentin 875-125] Ibuprofen [Motrin] 600 mg PO Q8HR PRN #24 tab 06/22/22 Allergies Allergy/AdvReac Type Severity Reaction Status Date / Time No Known Allergies Allergy Verified 06/22/22 08:13 Review of Systems ROS Statement: Those systems with pertinent positive or pertinent negative responses have been documented in the HPI. ROS Other: All systems not noted in ROS Statement are negative. Past Medical History Past Medical History: Asthma Additional Past Medical History / Comment(s): Bronchitis History of Any Multi-Drug Resistant Organisms: MRSA Date of last positivie culture/infection: 2011 MDRO Source:: right thigh Past Surgical History: No Surgical Hx Reported Additional Past Surgical History / Comment(s): , Past Psychological History: No Psychological Hx Reported Smoking Status: Current every day smoker Past Alcohol Use History: Occasional Past Drug Use History: None Reported General Exam Limitations: no limitations General appearance: alert, in no apparent distress Head exam: Present: atraumatic, normocephalic Eye exam: Present: normal appearance, PERRL ENT exam: Present: other (Poor dentition, soft tissue swelling and erythema left lower molars) Respiratory exam: Present: normal lung sounds bilaterally. Absent: respiratory distress, wheezes Cardiovascular Exam: Present: regular rate, normal rhythm GI/Abdominal exam: Present: soft. Absent: distended, tenderness, guarding Extremities exam: Present: normal inspection, normal capillary refill Neurological exam: Present: alert, oriented X3, CN II-XII intact. Absent: motor sensory deficit Psychiatric exam: Present: normal affect, normal mood Skin exam: Present: warm, dry, intact Course Vital Signs 06/22/22 08:10 Temperature 97.6 F Pulse Rate 65 Respiratory 18 Rate Blood Pressure 137/83 O2 Sat by Pulse 100 Oximetry Medical Decision Making - Medical Decision Making Patient started on antibiotics and should follow with his dentist as planned. Return parameters discussed. Uvula midline, no significant facial swelling, poor dentition throughout. Disposition Clinical Impression: Dental caries, Dental abscess Disposition: HOME SELF-CARE Condition: Good Instructions (If sedation given, give patient instructions): Dental Abscess (ED), Toothache (ED) Additional Instructions: Follow-up with your dentist as planned Prescriptions: Amoxic-Pot Clav 875-125Mg [Augmentin 875-125] 1 tab PO Q12HR 14 Days #28 tab Ibuprofen [Motrin] 600 mg PO Q8HR PRN #24 tab PRN Reason: Pain Is patient prescribed a controlled substance at d/c from ED?: No Referrals: None,Stated [Primary Care Provider] - 1-2 days Time of Disposition: 08:19
== END 2022-06-22 08:33 | disposition home or self-care (01) ==
LOC: EC 08:09
DX: K08.89 Other specified disorders of teeth and supporting structures (principal); K04.7 Periapical abscess without sinus; J45.909 Unspecified asthma, uncomplicated; F17.200 Nicotine dependence, unspecified, uncomplicated
CPT/HCPCS: 99282